=== PATIENT | male | born 1995 | race Caucasian/White ===

== ENCOUNTER 2017-11-19 09:27 | Emergency (ER) | payer BC ==
[2017-11-19 10:13] VITALS: BP 125/71
--- NOTE | 2017-11-19 10:31 | UC ---
UC General HPI - HPI Summary HPI Summary: Pt c/o sudden onset of nausea and vomiting on 11/15/17 that lasted two days. Pt reports then sudden onset of loose stools X 2 days. Pt reports yesterday that he vomited again last night X 2. - History of Current Complaint Chief Complaint: UCGI Stated Complaint: VOMITING DIARRHEA SWEATS COUGH Time Seen by Provider: 11/19/17 10:01 Hx Obtained From: Patient Onset/Duration: Sudden Onset, Lasting Days, Still Present Timing: Intermittent Episodes Lasting: Onset Severity: Mild Current Severity: Mild Pain Intensity: 0 Associated Signs & Symptoms: Positive: Diarrhea, Nausea, Vomiting - Allergy/Home Medications Allergies/Adverse Reactions: Allergies Allergy/AdvReac Type Severity Reaction Status Date / Time amoxicillin Allergy Unknown Unknown Verified 11/19/17 10:02 Reaction Details erythromycin base Allergy Unknown Unknown Verified 11/19/17 10:02 Reaction Details Penicillins Allergy Unknown Unknown Verified 11/19/17 10:02 Reaction Details PMH/Surg Hx/FS Hx/Imm Hx Previously Healthy: Yes - Surgical History Surgical History: Yes Surgery Procedure, Year, and Place: RECONSTRUCTON LEFT HUMORUS AGE [age]. - Family History Known Family History: Positive: Cardiac Disease - Social History Occupation: Student - [employer] - [place] Lives: Dormitory/Roommates Alcohol Use: Rare Substance Use Type: None Smoking Status (MU): Never Smoked Tobacco Review of Systems Constitutional: Fatigue Skin: Negative Eyes: Negative ENT: Negative Respiratory: Negative Cardiovascular: Negative Gastrointestinal: Vomiting, Diarrhea, Nausea Genitourinary: Negative Motor: Negative Neurovascular: Negative Musculoskeletal: Negative Neurological: Negative Psychological: Negative Is Patient Immunocompromised?: No All Other Systems Reviewed And Are Negative: Yes Physical Exam Triage Information Reviewed: Yes Appearance: Well-Appearing Vital Signs: Initial Vital Signs Temp 97.7 F 11/19/17 10:02 Pulse 71 11/19/17 10:02 Resp 18 11/19/17 10:02 BP 125/71 11/19/17 10:02 Pulse Ox 96 11/19/17 10:02 Vital Signs Reviewed: Yes Eye Exam: Normal ENT Exam: Normal Dental Exam: Normal Neck exam: Normal Respiratory Exam: Normal Cardiovascular Exam: Normal Abdominal Exam: Other Abdomen Description: Positive: Other: - left lateral to umibilus tenderness. Bowel Sounds: Positive: Hyperactive Musculoskeletal Exam: Normal Neurological Exam: Normal Psychological Exam: Normal Skin Exam: Normal Course/Dx - Differential Dx - Multi-Symptom Differential Diagnoses: Other - food poinsoning Provider Diagnoses: gastroenteritis Discharge - Discharge Plan Condition: Stable Disposition: HOME Prescriptions: Ondansetron HCl [Zofran] 8 mg PO Q8H PRN #15 tablet PRN Reason: Nausea Patient Education Materials: Acute Nausea and Vomiting (ED), Acute Diarrhea (ED ) Forms: *School Release Referrals: [facility] [Outside] Non Staff,Doctor [Primary Care Provider] -
== END 2017-11-19 10:39 | disposition home or self-care (01) ==
LOC: UCCORT 09:27
DX: K52.9 Noninfective gastroenteritis and colitis, unspecified (principal); Z88.1 Allergy status to other antibiotic agents; Z88.0 Allergy status to penicillin
CPT/HCPCS: 99202; G0463